=== PATIENT | female | born 1955 | race Caucasian/White ===

== ENCOUNTER 2016-03-27 10:03 | Emergency (ER) | payer BC ==
[~2016-03-27] VITALS: Ht 167.6 cm; Wt 64.0 kg
[2016-03-27 10:10] VITALS: BP 133/60; PULSE 75; RESP 18; TEMP 98.3; O2SAT 95
[2016-03-27 10:14] VITALS: BP 133/60; PULSE 62; RESP 18; O2SAT 98
--- NOTE | 2016-03-27 10:38 | PD ---
HPI Chief Complaint: Injury Time Seen by Provider: 10:28 Travel History International Travel<30 days: No Contact w/Intl Traveler<30days: No Traveled to known affect area: No History of Present Illness HPI 60-year-old female came to the emergency room with history of injuring her left knee when she jumped from a bleacher last night. Patient says that she did not assess the height carefully and the ground being lower than she thought. Immediately she felt pain in her left knee but then walked for a little while. After that the knee started to swell up and the pain kept getting worse. She did not sleep through the night due to the pain and could not find a comfortable position. This morning she was unable to stand and bear weight. She called 911 and was brought in by EMS. She received 4 mg of morphine en route by them. Currently she says the pain is still there but little better. But gets excruciatingly worse when she tries to move. She is also complaining of some pain in her left hip and left ankle. PFSH Past Medical History Narrative Medical List of her past medical, social and family history as reviewed from the nursing note. Cerebral Palsy: Yes (left sided weakness) Seizures: Yes Influenza Vaccination: No ?: Not Social History Alcohol Use: No Tobacco Use: Yes (1.5 ppd) Substance Use: Yes (THC daily) Allergies-Medications (Allergen,Severity, Reaction): Coded Allergies: No Known Allergies (Unverified , 03/27/16) Comments No known drug allergies. Reported Meds & Prescriptions Reported Meds & Active Scripts Active Hydrocodone-Acetaminophen 5-325 mg Tab 1 Tab PO Q6H PRN Narrative Medication Awaiting for the nurse to do medical reconciliation. Review of Systems Except as stated in HPI: all other systems reviewed are Neg Physical Exam Narrative GENERAL: Awake, alert, moderate distress SKIN: Warm and dry. HEAD: Atraumatic. Normocephalic. EYES: Pupils equal and round. No scleral icterus. No injection or drainage. ENT: No nasal bleeding or discharge. Mucous membranes pink and moist. NECK: Trachea midline. No JVD. CARDIOVASCULAR: Regular rate and rhythm. No murmur appreciated. RESPIRATORY: No accessory muscle use. Clear to auscultation. Breath sounds equal bilaterally. GASTROINTESTINAL: Abdomen soft, non-tender, nondistended. Hepatic and splenic margins not palpable. MUSCULOSKELETAL: Left knee swollen and tender. Decreased range of motion due to the pain. No clubbing. No cyanosis. No edema. Distal neovasculature intact NEUROLOGICAL: Awake and alert. No obvious cranial nerve deficits. Motor grossly within normal limits. Normal speech. PSYCHIATRIC: Appropriate mood and affect; insight and judgment normal. Data Data Last Documented VS Vital Signs Date Time Temp Pulse Resp B/P Pulse Ox O2 Delivery O2 Flow Rate FiO2 03/27/16 14:36 98.5 84 18 146/73 98 03/27/16 11:53 Nasal Cannula 2 Orders Electrocardiogram (03/27/16 ) Knee, Complete (4vws) (03/27/16 ) Hip, Uni(Ap&Lat) W Ap Pelvis (03/27/16 ) Ankle, Complete ([id number]) (03/27/16 ) Morphine Inj (Morphine Inj) (03/27/16 10:45) Lidocai-Epi 2%-1:100,000 Inj (Xylocaine- (03/27/16 12:15) ^ Knee Immobilizer (03/27/16 12:09) MDM Medical Decision Making Medical Screen Exam Complete: Yes Emergency Medical Condition: Yes Medical Record Reviewed: Yes Interpretation(s) Twelve-lead EKG was reviewed by me. Normal sinus rhythm, normal axis, nonspecific ST-T wave changes. Rate of 63 bpm. Differential Diagnosis Knee fracture, knee effusion Narrative Course 11:47 AM patient said the pain was coming back and I have ordered some more morphine. The x-rays were reviewed by the radiologist and read as normal except for some nonspecific knee joint effusion. 12:06 PM I had a lengthy discussion with the patient and her regarding the x-ray report and possibility of knee sprain and the traumatic joint effusion. She wanted an MRI and I tried to explain to her that getting an MRI emergently would not change the course the healing or the eventual management. In fact she would benefit if she had knee joint aspirated which would reduce the effusion and hence minimize the pain. I plan to put her in a knee immobilizer and then discharge her home to follow up with orthopedist. Patient has cerebral palsy and her left upper extremity is weak. She did not think she would be able to use crutches in which case I have recommended a wheelchair for ambulation purpose. They are from [place] and are she is debating whether they should have the orthopedist from [place] see her as opposed to the orthopedist from [facility] that will be referred to by me. I would leave that up to her. Patient has agreed for the arthrocentesis. I have explained the procedure to her and obtained a verbal consent. 1:26 PM the arthrocentesis was done and patient tolerated the procedure well. Knee immobilizer was applied. Procedures Procedure Narrative Vital Signs Date Time Temp Pulse Resp B/P Pulse Ox O2 Delivery O2 Flow Rate FiO2 03/27/16 11:53 66 16 103/59 99 Nasal Cannula 2 03/27/16 10:14 62 18 133/60 98 Room Air 03/27/16 10:14 60 18 98 Room Air 03/27/16 10:10 98.3 75 18 133/60 95 Right knee joint arthrocentesis: The right knee joint prepped with Betadine followed by 4 mL of 2% lidocaine and epinephrine. The knee joint was approached the lateral aspect of the patella with a 18-gauge spinal needle and blood was aspirated. Total amount of 100 ML of blood was aspirated and and the knee was wrapped with Nomi wrap and knee immobilizer was applied. Patient tolerated the procedure well. EKG Prior to Arrival: Yes Diagnosis Primary Impression: Effusion of knee joint, left Additional Impression: Knee sprain Qualified Code: S83.92XA - Sprain of left knee, unspecified ligament, initial encounter Referrals: Russel Frank MD 3 days Departure Forms: Tests/Procedures, Work Release Enter return to work date: Apr 03, 2016 Additional Instructions: Please call the orthopedist on Tuesday to make an appointment for follow-up. Keep the immobilizer on at all times except during shower. The leg elevated and apply ice. Take the pain medication prescribed to you only as needed. Do not drive or operate heavy machinery while on the medication since it'll make you groggy. Return to the ER if the condition worsens or any other new concerns. Med/Other Pt SpecificInfo: Prescription(s) given Scripts Hydrocodone-Acetaminophen 5-325 mg Tab1 Tab PO Q6H PRN (PAIN) #20 TAB Ref 0 Prov:Reid Rush MD 03/27/16 Disposition: 01 DISCHARGE HOME Condition: Stable Reid Rush MD Mar 27, 2016 10:38
[2016-03-27] MEDS ORDERED: MORPHINE SULFATE 4 MG/ML INJ IV PUSH ONE (10:45)
--- NOTE | 2016-03-27 11:42 | RADRPT ---
EXAM DATE/TIME: 03/27/2016 11:10 [facility] COMPARISON: No previous studies available for comparison. INDICATIONS : Pain from jumping off of a bleacher. MEDICAL HISTORY : None. SURGICAL HISTORY : None. ENCOUNTER: Initial ACUITY: 1 day PAIN SCORE: 4/10 LOCATION: Left hip. FINDINGS: Examination of the left hip was performed with AP Pelvis. The primary and secondary trabecular patte rn of the femoral neck is intact. The hip joint is of normal width without significant sclerosis or bony hypertrophy. The acetabulum is grossly intact. CONCLUSION: Intact pelvis and left hip. Inocente Shelby MD on March 27, 2016 at 11:40 Board Certified Radiologist. This report was verified electronically.
--- NOTE | 2016-03-27 11:43 | RADRPT ---
EXAM DATE/TIME: 03/27/2016 11:14 [facility] COMPARISON: No previous studies available for comparison. INDICATIONS : Pain from jumping off of a bleacher. MEDICAL HISTORY : None. SURGICAL HISTORY : None. ENCOUNTER: Initial ACUITY: 1 day PAIN SCORE: 7/10 LOCATION: Left knee. FINDINGS: There is a moderate suprapatellar joint effusion. Bones of the left knee are intact and normally alig renny. CONCLUSION: Nonspecific joint effusion. No fracture or subluxation. Inocente Shelby MD on March 27, 2016 at 11:41 Board Certified Radiologist. This report was verified electronically.
--- NOTE | 2016-03-27 11:44 | RADRPT ---
EXAM DATE/TIME: 03/27/2016 11:18 [facility] COMPARISON: No previous studies available for comparison. INDICATIONS : Pain from jumping off of a bleacher. MEDICAL HISTORY : Cerebral palsy. SURGICAL HISTORY : Surgical correction of foot for cerebral palsy. ENCOUNTER: Initial ACUITY: 1 day PAIN SCORE: 4/10 LOCATION: Left ankle. FINDINGS: Three view exam was performed of the left ankle. The bony structures are in normal alignment. No ev idence of fracture, dislocation, or soft tissue swelling. The ankle mortise is intact. No radiopaqu e foreign bodies are seen. Bony mineralization is normal. Anatomic variant os peroneum noted CONCLUSION: Intact left ankle. Inocente Shelby MD on March 27, 2016 at 11:42 Board Certified Radiologist. This report was verified electronically.
[2016-03-27 11:53] VITALS: BP 103/59; PULSE 66; RESP 16; O2SAT 99
[2016-03-27] MEDS ORDERED: LIDOCAINE 2%/EPINEPHrine 1:100,000 30ML MDV INFIL ONE (12:15)
[2016-03-27] MEDS ORDERED: HYDR-3516 PO (13:41)
[2016-03-27 14:36] VITALS: BP 146/73; TEMP 98.5
--- NOTE | 2016-03-27 16:53 | EKG ---
Date Performed: 03/27/2016 Time Performed: 10:20:15 PTAGE: 60 years EKG: Sinus rhythm WITH FIRST DEGREE AV BLOCK POSSIBLE RIGHT VENTRICULAR CONDUCTION DELAY ABNORMAL ECG NO PREVIOUS TRACING DOCTOR: Akash Odom Interpretating Date/Time 03/27/2016 16:53:03
== END 2016-03-27 14:20 | disposition home or self-care (01) ==
LOC: NEPE 10:03
DX: M25.462 Effusion, left knee (principal); S83.92XA Sprain of unspecified site of left knee, initial encounter; M25.552 Pain in left hip; M25.572 Pain in left ankle and joints of left foot; R94.31 Abnormal electrocardiogram [ECG] [EKG]; G80.9 Cerebral palsy, unspecified; F17.200 Nicotine dependence, unspecified, uncomplicated; Z86.69 Personal history of other diseases of the nervous system and sense organs; Y93.39 Activity, other involving climbing, rappelling and jumping off
CPT/HCPCS: 20610; 73502; 73564; 73610; 93005; 96374; 99284; J2270